=== PATIENT | male | born 1945 | race Two or more races ===

== ENCOUNTER 2018-02-20 08:49 | Outpatient (CLI) | payer OTHER ==
[~2018-02-20 08:49] MED LIST: ACICLOVIR; SYNTHROID50 MCG PO; TIMOLOL MALEATE
== END 2018-02-20 08:56 | disposition home or self-care (01) ==
LOC: SONOGRAMA 08:49
DX: M25.511 Pain in right shoulder (principal)

== ENCOUNTER 2018-06-01 06:00 | Day surgery (SDC) | payer OTHER | END 2018-06-01 16:25 | disposition home or self-care (01) | LOC: AMB-ENDOS 06:00 | DX: K64.2 Third degree hemorrhoids (principal) ==